=== PATIENT | female | born 1990 | race African-American/Black ===

== ENCOUNTER 2021-12-01 13:19 | Emergency (ER) | payer MEDICAID ==
[~2021-12-01] VITALS: Ht 165.1 cm; Wt 77.0 kg
[2021-12-01] MEDS ORDERED: KETOROLAC 15MG/ML VIAL IV ONE (14:30)
[2021-12-01 15:27] LABS: BASOPHILS % 0.6 % (0.0-2.0); EOSINOPHILS % 0.8 % (0.0-5.0); LYMPHOCYTES % 42.1 % (20.0-50.0); MEAN CORPUSCULAR HEMOGLOBIN 29.6 pg (28.0-32.0); MEAN CORPUSCULAR VOLUME 88.8 fL (81.0-99.0); MEAN PLATELET VOLUME 9.2 fl (7.4-10.4); MONOCYTES % 12.3 % (2.0-8.0); NEUTROPHILS % 44.2 % (40.0-76.0); PLATELET 234 x1000/uL (130-400); RED BLOOD CELL COUNT 4.39 mill/uL (4.2-5.4); RED CELL DISTRIBUTION WIDTH 13.7 % (11.6-14.6)
[2021-12-01 15:28] LABS: CHLORIDE 107 mEq/L (98-107)
[2021-12-01] MEDS ORDERED: IBUP-2029 MT (17:30)
[2021-12-01] MEDS ORDERED: AMOX-424 MT (17:30)
[2021-12-01 17:48] VITALS: BP 127/74
[2021-12-01] MEDS ORDERED: IOHEXOL-300 100 ML BOTTLE ONE (17:48)
== END 2021-12-01 17:49 | disposition home or self-care (01) ==
LOC: ER 13:19
DX: I88.9 Nonspecific lymphadenitis, unspecified (principal); R51.9 Headache, unspecified; Z88.1 Allergy status to other antibiotic agents
CPT/HCPCS: 36415; 70491; 80048; 81025; 85025; 96374; 99285; J1885; Q9967